=== PATIENT | male | born 1980 | race Two or more races ===

== ENCOUNTER 2025-01-29 08:18 | Day surgery (SDC) | payer BC ==
[~2025-01-29] VITALS: Ht 172.7 cm; Wt 142.9 kg
[~2025-01-29 08:18] MED LIST: ACCU-CHEK COMFORT CURVE STRIP VI ONE; EPINEPHrine HCL 1 MG/1 ML AMP ONE; HYDROmorphone HCL 2 MG/ML VL/or syr IV PRN; KETAMINE 50mg/ML 1ml syringe ONE; KETOROLAC TROMETH 30 MG/ML 1ML VIAL IV ONE; LIDOCAINE 1% INJ PF 5ML AMP ONE; LIDOCAINE HCL 2% TOP JELLY 5ML TOP ONE; METOCLOPRAMIDE HCL 5MG/ml INJ 2ml VIAL IV ONE; MIDAZOLAM HCL 2MG/2ML 2ml VIAL (1mg/ml) ONE; MORPHINE SULFATE 4 MG/ML SYR/VIAL IV PRN; MORPHINE SULFATE INJ 2 MG/ml SYRG IV PRN; ONDANSETRON HCL 4 MG/2 ML VIAL ONE; PROPOFOL 10 MG/ML 20 ML IV ONE; ROCURONIUM 10MG/ML 10ML VIAL IV ONE; ROPIVACAINE 0.5% (5MG/ML) 20ML AMPULE IJ ONE; SODIUM CHLORIDE LOCK 10 ML ONE; ceFAZolin 2 GM/D5W100ml 100 ML IV ONE; fentaNYL CITRATE 100 MCG/2 ML VL ONE
[2025-01-29] MEDS ORDERED: SUCCINYLCHOLINE CHLORIDE 20 MG/ML 10ML VIAL IV ONE (08:19)
[2025-01-29] MEDS ORDERED: DexAMETHasone SOD PHOS 10MG/1ML VIAL INJ ONE (08:55)
[2025-01-29] MEDS ORDERED: HYDROmorphone HCL 2 MG/ML VL/or syr ONE (10:38)
[2025-01-29 10:55] VITALS: PULSE 98; RESP 14; TEMP 97.5; O2SAT 89
--- NOTE | 2025-01-29 11:01 | DVHOP2 ---
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 These include but are not limited to complications of anesthesia, postoperative infection, incomplete relief of symptoms, recurrence of symptoms, damage to blood vessels, nerves and tendons, deep venous thrombosis, pulmonary embolism and possible need for repeat surgery in the future. Complications: None Estimated Blood Loss: 5 cc Fluids: See anesthesia record Findings: Normal range of motion without instability. He had a grade 4 lesion in the mid trochlea approximately 2 x 2 cm the cartilage in the rest of the joint was relatively spared there was a partial-thickness posterior tear of the medial meniscus at the red-white junction ACL and PCL were intact he had a 3/4 discoid meniscus in the lateral compartment Indications for Surgery: Left knee pain with MRI confirmed discoid meniscus not responding to conservative management Name of Procedure Performed Left knee arthroscopy, medial meniscus repair, partial lateral meniscectomy, microfracture trochlea Procedure Details Procedure Details: Patient was brought to the operating room placed on table supine position. General anesthetic was given. 2 g IV Ancef were given. Examination under anesthesia performed. Operative lower extremity was prepped and draped in ster ile fashion. Surgical timeout was performed verifying patient, laterality, and procedure. Extremity was elevated, exsanguinated with Esmarch, and tourniquet inflated to 3 mmHg. I then made inferior lateral portal in usual fashion and entered the joint with blunt cannula and trocar. I began my inspection of the suprapatellar recess patellofemoral compartment medial gutter and the medial compartment. I placed inferior medial portal utilizing a spinal needle for guidance. I inspected and probed the structures identifying posterior horn red- white partial-thickness tear with moderate instability. I then shaved some fat pad to improve visualization in the notch then inspected and probed ligaments which were intact. I checked the lateral compartment in the [id number] position and again probed the structures which revealed the discoid meniscus. I used biters to saucerize the meniscus. I checked for stability which was good.. I inspected the lateral gutter and brought my attention back to the medial c ompartment. I brought my attention back to the medial compartment and placed a skid to insert an Arthrex meniscus repair implant. I reduced the meniscus tear with the Arthrex needle inserted the anchor then pulled back and inserted the 2nd anchor then cinched the sutures to complete the placement of the meniscus repair anchor. I used a cutter and shaver to remove the tail of the suture. I used probe to verify stability. I brought my attention back to the patellofemoral joint. I used shaver to remove loose cartilage in the legion. I used a curette to create vertical wall as well as scraped the base of the crater. I then used the Arthrex microfracture drill to create drill holes. I then irrigated the joint and suctioned several times to remove particulate debris. I irrigated and suctioned several times to remove particular debris. I then suctioned the joint as dry as possible. Portal sites were closed with Steri-Strips. The wounds were dressed sterilely. Tourniquet released at time of closure. Patient tolerated the procedure well and was brought to the recovery room in stable condition. Condition Stable Disposition Still a Patient DAVID ZHONG MD Jan 29, 2025 11:01
[2025-01-29] MEDS: HYDROmorphone HCL 2 MG/ML VL/or syr IV PRN (11:43)
[2025-01-29 12:10] VITALS: BP 147/97; PULSE 84; RESP 15; O2SAT 96
== END 2025-01-29 12:20 | disposition home or self-care (01) ==
LOC: SUR 08:18
PROVIDERS: ATTEND Orthopaedic Surgery
DX: S83.242A Other tear of medial meniscus, current injury, left knee, initial encounter (principal); M94.262 Chondromalacia, left knee; Q68.6 Discoid meniscus; E66.01 Morbid (severe) obesity due to excess calories; Z68.42 Body mass index [BMI] 45.0-49.9, adult; X58.XXXA Exposure to other specified factors, initial encounter; Y93.89 Activity, other specified; Y92.89 Other specified places as the place of occurrence of the external cause; Y99.8 Other external cause status
CPT/HCPCS: 29879; 29881; 29882; J0171; J0330; J1100; J1171; J2250; J2405; J2704; J2795; J3010